=== PATIENT | male | born 1955 | race Two or more races ===

== ENCOUNTER → 2017-03-02 | Day surgery (SDC) | payer BC ==
[2017-03-02] VITALS (9 sets, daily range): BP systolic 109–133; BP diastolic 65–89
[~2017-03-02] VITALS: Ht 165.1 cm; Wt 95.3 kg
[~2017-03-02] MED LIST: ASPIRIN-LOW81 MG ORAL; CRESTOR10 M1 ORAL; LR 1000ml 1,000 ML IVLG SCH; LR 1000ml ONE; PROVENTIL HFA6.7 G1 IH; Propofol 10mg/ml 20ml IV ONE; [UNRECOGNIZED DRUG - CODE] PO
--- NOTE | 2017-03-02 08:02 | Anethesia Preoperative Eval ---
Anesthesia Pre-op PMH/ROS General Date of Evaluation: Mar 02, 2017 Time of Evaluation: 08:01 Anesthesiologist: kuldip ASA Score: ASA 1 Mallampati Score Class I : Soft palate, uvula, fauces, pillars visible Class II: Soft palate, uvula, fauces visible Class III: Soft palate, base of uvula visible Class IV: Only hard plate visible Allergies: Coded Allergies: PENICILLINS (Verified Allergy, Intermediate, PT FAINTED, 08/31/13) Anesthesia Pre-op Phys. Exam Physician Exam Last Vital Signs Date Time Temp Pulse Resp B/P Pulse Ox O2 Delivery O2 Flow Rate FiO2 03/02/17 07:32 96.3 71 17 123/85 97 Room Air Debra Macias MD Mar 02, 2017 08:02
--- NOTE | 2017-03-02 08:16 | Pre-Procedure Note/Attestation ---
Pre-Procedure Note/Attestation Complete Prior to Procedure Planned Procedure: not applicable Procedure Narrative: esophagogastroduodenoscopy and colonoscopy Indications for Procedure Pre-Operative Diagnosis: gastritis, colon CA Attestation I attest that I discussed the nature of the procedure; its benefits; risks and complications; and alternatives (and the risks and benefits of such alternatives ), prior to the procedure, with the patient (or the patient's legal denial management representative). I attest that, if there was a reasonable possibility of needing a blood transfusion, the patient (or the patient's legal denial management representative) was given the [facility] standardized written summary, pursuant to the Antonio Khushi Blood Safety Act ([place] Health and Safety Code # 1645, as amended). I attest that I re-evaluated the patient just prior to the surgery and that there has been no change in the patient's H&P, except as documented below: MICHELLE ARCHULETA Mar 02, 2017 08:16
--- NOTE | 2017-03-02 08:16 | Short Stay Surgery H&P ---
History of Present Illness History of Present Illness Chief Complaint see typed H&P HPI Gerardo Diaz is a 61 year old male who was admitted on for Colon Cancer Patient History Allergies: Coded Allergies: PENICILLINS (Verified Allergy, Intermediate, PT FAINTED, 08/31/13) Uncoded Allergies: PCN (Allergy, Unknown, 03/02/17) fainted PAST MEDICAL HISTORY: Past Surgeries: Social History: Medication History Scheduled Albuterol Sulfate (Proventil Hfa), 6.7 GM IH NEEDED, (Reported) Aspirin (Aspirin EC), 81 MG ORAL DAILY, (Reported) Rosuvastatin Calcium (Crestor), 5 MG ORAL DAILY, (Reported) Ubidecarenone (Co Q-10), 300 MG PO DAILY, (Reported) Physical Exam Vital Signs Last Vital Signs Date Time Temp Pulse Resp B/P Pulse Ox O2 Delivery O2 Flow Rate FiO2 03/02/17 07:32 96.3 71 17 123/85 97 Room Air Plan Attestation Are the patient's medical conditions optimized for surgery? MICHELLE ARCHULETA Mar 02, 2017 08:16
--- NOTE | 2017-03-02 08:56 | Endoscopy Procedure Note ---
Endoscopy Procedure Note Indication for Procedure: josué, colon CA Procedures Performed: EGD, colonoscopy Operative Findings/Diagnosis: josué, colon CA Specimen: yes Pt Tolerated Procedure Well: Yes Estimated Blood Loss: none Anesthesiologist: see report Anesthesia: MAC Medication Given: see anesthesia record Implant(s) used?: No 50 yrs or older w/o bx or poly: No 10yrs. F/U not recommended: No If not recommended, why?: Above average risk 10 yrs. F/U needed: No 18 years or older w/prev. colo: Yes <3yrs. since last colonoscopy: No Med reason:<3 yrs.: System Reason:<3 yrs.: Last colonoscopy >= to 3yrs: Yes MICHELLE ARCHULETA Mar 02, 2017 08:56
--- NOTE | 2017-03-02 08:58 | Brief Operative Note ---
Immediate Post Operative Note Operative Note Chief Complaint: josué, colon CA Pre-op Diagnosis: gastritis, colon CA Procedure: EGD/bx, colon/bx Post-op Diagnosis: R/O EE, prox josué, R maxwell, rectal polyp Surgeon: slade Anesthesia: moderate sedation Specimen: yes Complications: none Condition: stable Estimated Blood Loss: none Drains: none Implant(s) used?: No MICHELLE ARCHULETA Mar 02, 2017 08:58
--- NOTE | 2017-03-02 09:54 | Immediate Post-Op Evaluation ---
Immediate Post-Op Evalulation Immediate Post-Op Evalulation Procedure: EGD Colon Date of Evaluation: Mar 02, 2017 Time of Evaluation: 09:54 Nausea: No Vomiting: No Hydration Status: adequate Debra Macias MD Mar 02, 2017 09:54
--- NOTE | 2017-03-02 09:55 | 48 Hour Post Anesthesia Eval ---
Post Anesthesia Evaluation Procedure: EGD Colon Date of Evaluation: Mar 02, 2017 Time of Evaluation: 09:54 Nausea: No Vomiting: No Debra Macias MD Mar 02, 2017 09:55
--- NOTE | 2017-03-02 15:18 | Operative Note - Dictated ---
DATE OF OPERATION: 03/02/2017 GASTROENTEROLOGY PROCEDURE NOTE PROCEDURE: Upper gastroendoscopy with biopsy as well as colonoscopy biopsy. SURGEON: Reggie Herrmann M.D. ANESTHESIA: Please see the separate anesthesiologist notes for details. PRE-ENDOSCOPY DIAGNOSES: 1. History of gastritis. 2. History of colon cancer. POST-ENDOSCOPIC DIAGNOSES: 1. Possible gastritis, status random biopsy of the distal stomach and proximal stomach. 2. Ring-like projections throughout the esophagus with some frictional effect through the endoscope raising the possibility of esophagitis. The mid esophagus was biopsied. 3. Status post right hemicolectomy as expected. 4. Diminutive rectal polyp at 16 millimeters, status biopsy. RECOMMENDATIONS: 1. Follow up biopsy results. 2. Outpatient followup. Reggie Herrmann M.D. DR: Inocencio JOB#: [id number] CC:
--- NOTE | 2017-03-04 19:18 | Operative Note - Dictated ---
DATE OF OPERATION: 03/02/2017 PROCEDURE: Upper gastrointestinal endoscopy with biopsy as well as colonoscopy with biopsy. SURGEON: Reggie Herrmann M.D. ANESTHESIA: Please see the separate anesthesiologist notes for details. PRE-ENDOSCOPIC DIAGNOSES: 1. History of gastritis. 2. History of colon cancer. POST-ENDOSCOPIC DIAGNOSES: 1. Possible gastritis status post random biopsy of the distal stomach and proximal stomach. 2. Ring like projection throughout the esophagus, some frictional effect through the endoscope raising the possibility of using esophagitis. The mid of esophagus was biopsied. 3. Status post right hemicolectomy anatomy as expected. 4. Diminutive rectal polyp was seen and biopsied off. PROCEDURE: The procedure, its risks, indications, alternatives, and possible complications were explained the patient and informed consent was obtained. The patient was then sedated and a diagnostic upper endoscope was introduced through the oropharynx and advanced to the duodenum. The endoscope was then gradually withdrawn and the mucosa examined carefully. Thereafter, the colonoscope was introduced in the rectum and advanced to the anastomosis. The colonoscope was then gradually withdrawn and the mucosa examined carefully. Findings were as listed above. The patient tolerated the procedure well and was sent to recovery in good condition. COMPLICATIONS: None. RECOMMENDATIONS: 1. Follow up biopsy results. 2. Outpatient followup. Reggie Herrmann M.D. DR: FILIPE JOB#: [id number] CC:
== END | disposition home or self-care (01) ==
LOC: GAS 06:46
DX: Z85.038 Personal history of other malignant neoplasm of large intestine (principal); D12.8 Benign neoplasm of rectum; K63.89 Other specified diseases of intestine; K29.50 Unspecified chronic gastritis without bleeding; B96.81 Helicobacter pylori [H. pylori] as the cause of diseases classified elsewhere; K22.2 Esophageal obstruction; I10 Essential (primary) hypertension; E78.00 Pure hypercholesterolemia, unspecified; R73.09 Other abnormal glucose; Z90.49 Acquired absence of other specified parts of digestive tract; Z87.19 Personal history of other diseases of the digestive system; Z79.82 Long term (current) use of aspirin; Z88.0 Allergy status to penicillin
CPT/HCPCS: 43239; 45380; J2704; J7120; 94003; 94150